=== PATIENT | male | born 1950 | race Caucasian/White ===

== ENCOUNTER 2021-11-30 08:49 | Outpatient (REF) | payer MEDICARE, OTHER, SELFPAY ==
--- NOTE | 2021-12-03 12:20 | MHC.AU.ANO ---
Adult Audiological Evaluation Date of Visit: 11/30/21 Material Reprocessing Associate Used: Not Applicable Reason for Appointment: Referred for an audiologic evaluation due to gradually decreasing hearing ability and tinnitus. Clint reports he is asking for people to repeat what was said more often, particularly when background noise is present. Does patient feel they have a hearing loss?: Yes If Yes, Which Ear?: Both Ears Has hearing been tested previously?: No Hearing Handicap Inventory: HHIE SCORE: 18 Based on HHIE score, patient has: Mild to moderate perceived hearing handicap Ear History: Family History of Hearing Loss?: Yes: Father, 2 siblings, and paternal aunt Bothersome Tinnitus/Ringing/Noises in Ears: Both Ears Ear used on the phone: Left Ear History of occupational noise exposure?: Yes: Used hearing protection as he thought it was needed History: History: Yes Branch: [place] [employer] Years in : Less than 4 years Medical History: Medical History: High Blood Pressure Medication List: Lisinopril and Multivitamin Otoscopy: Right Ear: Small amount of cerumen around the canal wall. Able to visualize TM Left Ear: Small amount of cerumen around the canal wall. Able to visualize TM Tympanometry: Tympanometry performed due to: To assess integrity of the middle ear system Right Ear: Hypercompliant Middle Ear System (Type Ad) Left Ear: Hypercompliant Middle Ear System (Type Ad) Otoacoustic Emissions Frequency Range Used: 1.6-8 kHz Right Ear Results: Present 1600 Hz. Reduced 2000 Hz. Absent 1160-2254 Hz Analysis: Reduced/Absent emissions suggest cochlear dysfunction Results are consistent with degree and configuration of hearing loss Left Ear Results: Reduced 1600 Hz. Absent 5133-5090 Hz Analysis: Reduced/Absent emissions suggest cochlear dysfunction Results are consistent with degree and configuration of hearing loss Hearing Evaluation: Transducer(s) Used: Insert Earphones Bone Conduction Method: Conventional Audiometry Stimuli Used: Pure Tones Right Ear: Description of Hearing: Normal hearing thresholds at 250-1000 Hz, dropping to a severe high frequency sensorineural hearing loss. Left Ear: Description of Hearing: Normal hearing levels 250-750 Hz, dropping to a severe high frequency sensorineural hearing loss. Speech Recognition Threshold (SRT): Method Used: Monitored Live Voice Stimuli Used: Spondee Words Right Ear: 20 dB HL Left Ear: 25 dB HL Word Discrimination: Method: Recorded Lists Word Lists Used: NU-6 Right Ear: 92% at 65 dB HL Left Ear: 56% at 70 dB HL 72% at 80 dB HL Most Comfortable Level (MCL): Right Ear: 65 dB HL Left Ear: 70 dB HL QuickSIN: Binaural Quick SIN Test: 8 dB SNR Loss. This score suggests Clint experiences a moderate degree of difficulty understanding speech with increasing levels of background noise in this controlled test environment. Real world listening situations are likely to make speech understanding even more difficult. Interpretation of Results: With this significant high frequency hearing loss, individuals usually report they can hear people speaking, but are not always able to understand what was said. Clint is not able to hear many consonant sounds of speech which help differentiate similar sounding words. This understanding ability decreases significantly if background noise is present or the speaker is at a distance or not facing Clint. Discussed and provided a handout regarding Communication Strategies Clint and his family can use to improve speech understanding as much as possible. Recommendations: - Referral to Ear, Nose, and Throat is recommended due to the asymmetric hearing loss. - Trial with amplification is recommended. - Medical clearance from a physician is required before fitting. - Audiological re-evaluation in one year. Will send a reminder card. - If Clint would like to pursue hearing aids from this office after receiving medical clearance from the ENT, he may schedule a Hearing Aid Evaluation within 6 months from this hearing test. Diagnosis: Primary Diagnosis: H90.3 Bilateral Sensorineural Hearing Loss Secondary Diagnosis: H93.13 Tinnitus, Bilateral Services Performed: Comprehensive Audiological Evaluation (CPT 18337) Diagnostic Otoacoustic Emissions (CPT 90583, 26+TC) Tympanometry (CPT 17281) Signature: Provider: Lydia Bains, [facility]
== END 2021-11-30 08:50 | disposition home or self-care (01) ==
LOC: HO.SH 08:49
PROVIDERS: Visit Provider Internal Medicine
DX: Z01.118 Encounter for examination of ears and hearing with other abnormal findings (principal); H90.3 Sensorineural hearing loss, bilateral; H93.13 Tinnitus, bilateral
CPT/HCPCS: 92557; 92567; 92588

== ENCOUNTER 2022-03-29 12:39 | Outpatient (REF) | payer SELFPAY ==
--- NOTE | 2022-03-29 14:00 | MHC.AU.HAS ---
Hearing Aid Evaluation Date of Visit: 03/29/22 Historical Information: Description of Hearing: Normal hearing thresholds 250 and 500 Hz dropping to an asymmetric severe high frequency sensorineural hearing loss, left ear poorer than right Current personal amplification information, if applicable: NONE Summary: Saw ENT, Dr. Sebastian and had MRI with no retrocochlear pathology seen. ENT did not give medical clearance to patient at the visit. Will request medical clearance. Discussed appropriate styles and levels of technology. Patient wants to order the following hearing aids to facilitate communication Hearing Aid Prescription: Based on the individual?s shared listening needs, communication environments, dexterity, desire for connectivity, and personal preferences, the following prescription for amplification has been made: Right ear: Electrical And Radio Mechanic: BareedEE Model: Evolv AI 2400 RY-R Battery Size: Rechargeable Color: Champagne Forestry Technical Officer: #3 60 gain Type of Dome: Open Left ear: Electrical And Radio Mechanic: BareedEE Model: Evolv AI 2400 RY-R Battery Size: Rechargeable Color: Champagne Forestry Technical Officer: #3 60 gain Type of Dome: Open Plan of Care: Patient wishes to purchase hearing aids as prescribed Action Taken/Action Needed: Medical Clearance to be requested from PCP/ENT Hearing Instrument Fitting to be scheduled when materials arrive Primary Diagnosis: H90.3 Bilateral Sensorineural Hearing Loss Secondary Diagnosis: H93.13 Tinnitus, Bilateral Signature:Provider: Atiya Bains, CCC-A
--- NOTE | 2022-04-04 09:56 | MHC.AU.MED ---
Medical Clearance for Hearing Instrumentation Date: 04/04/22 Patient Name: Clint Padilla Date of : 1950 Primary Care Provider: Veronica Mccann MD Referring Provider: Paul Sebastian MD We have seen your patient on 04/04/22 and have determined that they are a candidate for amplification (See accompanying report). Specifically, they would benefit from: Hearing aid use in both ears There is a statute that addresses Medical Evaluation Requirements prior to fitting a patient with a hearing aid. According to [place] statute 265 CMR:6.03(1), (a) General. Except as provided in 265 CMR 6.03(1)(b), a home health aide shall not sell a hearing aid unless the prospective user has presented to the home health aide a written statement signed by a licensed physician that states that the patient's hearing loss has been medically evaluated and the patient may be considered a candidate for a hearing aid. The medical evaluation must have taken place within the preceding six months. Please note: Due to the [place] Statute referenced above, we cannot accept a signature other than that of a licensed physician. GOLD STAMPER and PA signatures cannot be accepted. I am in agreement with the above recommendation. There is no medical contraindication for hearing instrumentation. Physician Signature Date Physician Name (Printed)
== END 2022-03-29 12:40 | disposition home or self-care (01) ==
LOC: HO.HAP 12:39
PROVIDERS: Visit Provider Otolaryngology
DX: Z46.1 Encounter for fitting and adjustment of hearing aid (principal); H90.3 Sensorineural hearing loss, bilateral
CPT/HCPCS: 92591

== ENCOUNTER 2022-04-11 13:30 | Outpatient (REF) | payer SELFPAY | END 2022-04-11 13:31 | disposition home or self-care (01) | LOC: HO.HAP 13:30 | PROVIDERS: Visit Provider Otolaryngology | DX: Z46.1 Encounter for fitting and adjustment of hearing aid (principal); H90.3 Sensorineural hearing loss, bilateral; H93.13 Tinnitus, bilateral | CPT/HCPCS: 92591; V5261; V5299 ==

== ENCOUNTER 2022-04-25 13:27 | Outpatient (REF) | payer SELFPAY ==
--- NOTE | 2022-04-25 15:10 | MHC.AU.HFU ---
Hearing Instrument Follow-Up- Binaural Date of Visit: 04/25/22 Right Ear: Medical Numerical Control Operator: Jsoe Model: Evolv AI 2400 RY-R Serial Number: [id number] Repair Warranty: 07/02/2025 Loss and Damage Warranty: 07/02/2025 Battery Size: Rechargeable Color: Champagne Dubbing Machine Operator: #3 60 gain Type of Dome: Open Medium Type of Wax Guard: Hear Clear Dispensed By: [facility] Date of Fittin04/11/2022 Left Ear: Medical Numerical Control Operator: Jose Model: Evolv AI 2400 RY-R Serial Number: [id number] Repair Warranty: 07/02/2025 Loss and Damage Warranty: 07/02/2025 Battery Size: Rechargeable Color: Champagne Dubbing Machine Operator: #3 60 gain Type of Dome: Open Medium Type of Wax Guard: HearClear Dispensed By: [facility] Date of Fittin04/11/2022 Follow-Up Summary: 2 Week Follow-up - Over past week, patient reports improved feelings about the aids. First week he was having difficulty with tolerating the high frequency sounds but is now getting used to them. Also had difficulty with Thrive andi, but after clearing storage in the phone, is not experiencing any more problems at this time. No adjustments made today and patient wants to keep the aids. Recommendations: Hearing instrument follow-up or maintenance as needed. Please contact our clinic with any questions or concerns. Diagnosis Code(s): Primary Diagnosis: H90.3 Bilateral Sensorineural Hearing Loss Secondary Diagnosis: H93.13 Tinnitus, Bilateral Signature:Provider: Lydia Bains, [facility]
== END 2022-04-25 13:28 | disposition home or self-care (01) ==
LOC: HO.HAP 13:27
PROVIDERS: Visit Provider Internal Medicine
DX: Z13.89 Encounter for screening for other disorder (principal)

== ENCOUNTER 2023-02-25 07:56 | Outpatient (REF) | payer MEDICARE, OTHER, SELFPAY | END 2023-02-25 07:57 | disposition home or self-care (01) | LOC: HO.SH 07:56 | PROVIDERS: Visit Provider Internal Medicine | DX: Z01.118 Encounter for examination of ears and hearing with other abnormal findings (principal); H90.3 Sensorineural hearing loss, bilateral | CPT/HCPCS: 92557 ==

== ENCOUNTER 2023-04-03 10:41 | Outpatient (REF) | payer SELFPAY | END 2023-04-03 10:42 | disposition home or self-care (01) | LOC: HO.HAP 10:41 | PROVIDERS: Visit Provider Internal Medicine | DX: Z13.89 Encounter for screening for other disorder (principal) ==

== ENCOUNTER 2024-03-26 10:24 | Outpatient (REF) | payer SELFPAY ==
--- NOTE | 2024-03-29 08:49 | MHC.AU.HA3 ---
Hearing Instrument Follow-Up- Binaural Date of Visit: 03/26/24 Right Ear: Isac, Model, Color, Serial Number: Jose Almanza AI 2400 MONIQUE Schmidt #[id number] Financial Advisor Trainee Repair Warranty: 07/02/2025 Financial Advisor Trainee Loss and Damage Warranty: 07/02/2025 [facility] Service Plan: 07/02/2025 Battery Size: Rechargeable Live Games Dealer/Slim Tube: #3 60 gain Earmold/Dome/CShell/SlimTip: Type of Wax Guard: Hear Clear Dispensed By: [facility] Date of Fittin04/11/2022 Left Ear: Isac, Model, Color, Serial Number: Jose Almanza AI 2400 MONIQUE Schmidt #[id number] Financial Advisor Trainee Repair Warranty: 07/02/2025 Financial Advisor Trainee Loss and Damage Warranty: 07/02/2025 [facility] Service Plan: 07/02/2025 Battery Size: Rechargeable Live Games Dealer/Slim Tube: #3 60 gain Earmold/Dome/CShell/SlimTip: Type of Wax Guard: HearClear Dispensed By: [facility] Date of Fittin04/11/2022 Follow-Up Summary: Left aid dropped off with broken credit collections rep. None in stock. Ordered from Jose. Aid is in repair drawer. Call pt to leaf size picker when ready. Recommendations: Recommendations: Patient will be contacted when materials have arrived. Diagnosis Code(s): Primary Diagnosis: H90.3 Bilateral Sensorineural Hearing Loss Secondary Diagnosis: H93.13 Tinnitus, Bilateral Signature: Provider: Farzaneh Sawant, [facility]
== END 2024-03-26 10:25 | disposition home or self-care (01) ==
LOC: HO.HAP 10:24
DX: Z13.89 Encounter for screening for other disorder (principal)

== ENCOUNTER 2024-04-13 14:34 | Outpatient (REF) | payer SELFPAY | END 2024-04-13 14:35 | disposition home or self-care (01) | LOC: HO.HAP 14:34 | DX: Z13.89 Encounter for screening for other disorder (principal) ==

== ENCOUNTER 2025-03-17 14:46 | Outpatient (REF) | payer SELFPAY ==
--- OUTSIDE RECORDS SUMMARY | 2025-03-17 15:26 | XMS_ITS | Clinical Summary ---
Author Organization [facility] Address [address] [place] [address] Care Team Providers Care Greens Tier Name Role Phone Veronica Mccann MD Primary Care Provider [phone] Allergies No known active allergies Medications Medication Sig Dispensed Refills Start Date End Date Status lisinopril (PRINIVIL,ZESTRIL) tablet 20 mg Take 20 mg by mouth daily. 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 Sex and Gender Information Value Date Recorded Sex Assigned at Not on file Gender Identity Not on file Sexual Orientation Not on file Job Start Date Occupation Industry Not on file Not on file Not on file Last Filed Vital Signs Vital Sign Reading Time Taken Comments Blood Pressure 171/85 12/18/2021 9:32 AM EST Pulse 75 12/18/2021 9:32 AM EST Temperature 36.8 ??C (98.2 ??F) 12/18/2021 9:32 AM ES T Respiratory Rate - - Oxygen Saturation 100% 12/18/2021 9:32 AM EST Inhaled Oxygen Concentration - - Weight 78.9 kg (174 lb) 12/18/2021 9:32 AM EST Height 175.3 cm (5' 9 ) 12/18/2021 9:32 AM EST Body Mass Index 25.7 12/18/2021 9:32 AM EST Plan of Treatment Health Maintenance Due Date Last Done Comments Hepatitis C Screening 1950 COVID-19 Vaccine (#1) 01/07/1951 Depression Screening 1961 Preventative Health Evaluation 1967 Colon Cancer Screening (Colonoscopy) 1994 Shingrix-Zoster Vaccine (1 of 2) 1999 Fall Risk Assessment 2014 DTap / Tdap / Td (2 - Td or Tdap) 08/16/2023 08/16/2013 RSV Adult > 60+ Yrs or (1 - 1-dose 75+ series) 2024 Influenza Vaccine (#1) 2024 , 08/21/2020, 08/19/2019, Additional history exists Pneumococcal Vaccine Completed 01/05/2015, 11/04/20 14 Hepatitis B Vaccines Aged Out No long er eligible based on patient's age to complete this topic RSV Ped < 20 months Aged Out No longe r eligible based on patient's age to complete this topic Care Teams Greens Tier Relationship Specialty Start Date End Date Veronica Mccann MD PCP - General Internal Medicine 11/19/21
== END 2025-03-17 14:47 | disposition home or self-care (01) ==
LOC: HO.HAP 14:46
PROVIDERS: PCP Internal Medicine; Visit Provider Internal Medicine
DX: Z13.89 Encounter for screening for other disorder (principal)

== ENCOUNTER 2025-03-30 10:35 | Outpatient (REF) | payer SELFPAY ==
--- OUTSIDE RECORDS SUMMARY | 2025-03-30 12:02 | XMS_ITS | Clinical Summary ---
Author Organization [facility] Address [address] [place] [address] Care Team Providers Care Pharmacy Operations Specialist Name Role Phone Veronica Mccann MD Primary Care Provider [phone] Allergies No known active allergies Medications Medication [...] age to complete this topic Care Teams Pharmacy Operations Specialist Relationship Specialty Start Date End Date Veronica Mccann MD PCP - General Internal Medicine 11/19/21
--- OUTSIDE RECORDS SUMMARY | 2025-03-30 12:02 | XMS_ITS | Encounter Summary ---
Author Organization [facility] Address [address] [place] [address] Care Team Providers Care Central Supply Technician Name Role Phone Veronica Mccann MD Primary Care Provider [phone] Reason for Visit * Reason Comments Annual Exam Hypertension Encounter Details Date Type Department Care Team (Late st Contact Info) Description 03/28/2025 3:00 PM EDT Office Visit Adult Medicine [facility] [address] [place] [phone] Veronica Mccann MD [address] [place] [address] Routine general medical examination at a health care facility (Primary Dx); Primary hypertension; Screening for prostate cancer Social History Tobacco Use Types Packs/Day Years Used Date Smoking Tobacco: Never Smokeless Tobacco: Never Tobacco Cessation:Counseling Given: Not Answered Alcohol Use Standard Drinks/Week Comments Yes 0 (1 standard drink = 0.6 oz pur e alcohol) Housing Instability Answer Date Recorde d Are you worried that in the next 2 months you may not have stable housing? No 09/22/2024 Food Access & Nutrition Answer Date Rec orded Do you have access to a vari ety of food including fruits and vegetables? Yes 09/22/2024 Access to Healthcare Answer Date Record ed Within the last 3 months, ho w many times did you visit the emergency department for your medical care? 0 09/22/2024 Health Literacy Answer Date Recorded How often do you need to hav e someone help you when you read instructions, pamphlets, or other written material from your doctor or pharmacy? Never 09/22/2024 Caregiver: How often do you need to have someone help you when you read instructions, pamphlets, or other written material from your doctor or pharmacy? Not on file 09/22/2024 Financial Risk Answer Date Recorded How hard is it for you to pa y for the very basics like food, housing, medical care, and air conditioning / heating? Not very hard 09/22/2024 Transportation Answer Date Recorded Has the lack of transportati on kept you from meetings, work, or from getting things needed for daily living? No Has the lack of transportati on kept you from medical appointments or from getting medications? No 09/22/2024 Social Isolation Answer Date Recorded How often do you feel lonely or isolated from th ose around you? Rarely 09/22/2024 Food Risk Answer Date Recorded Within the past 12 months we worried whether our food would run out before we got money to buy more. Never true 09/22/2024 Within the past 12 months th e food we bought just didn't last and we didn't have money to get more. Never true 09/22/2024 Dependent Care Answer Date Recorded Do you need help finding or paying for care for your loved ones. For example, child nutrition manager or elderly care for an older adult? No 09/22/2024 Education Answer Date Recorded Do you think completing more education or training, like finishing a GED, going to college, or learning a trade, would be helpful for you? N/A 09/22/2024 Employment and Income Answer Date Recor ded During the last four weeks, have you been actively looking for work? No 09/22/2024 Living Situation Answer Date Recorded What is your living situation? 1 11/22/2023 Sex and Gender Information Value Date Recorded Sex Assigned at Not on file Legal Sex Male 3:55 AM EST Gender Identity Not on file Sexual Orientation Not on file documented as of this encounter Last Filed Vital Signs Vital Sign Reading Time Taken Comments Blood Pressure 138/82 03/28/2025 3:16 PM EDT Pulse 64 03/28/2025 2:47 PM EDT Temperature 36.1 ??C (96.9 ??F) 03/28/2025 2:47 PM ED T Respiratory Rate 14 03/28/2025 2:47 PM EDT Oxygen Saturation 98% 03/28/2025 2:47 PM EDT Inhaled Oxygen Concentration - - Weight 81.8 kg (180 lb 4.8 oz) 03/28/2025 2:47 P M EDT Height 175.3 cm (5' 9 ) 03/28/2025 2:47 PM EDT Body Mass Index 26.63 03/28/2025 2:47 PM EDT documented in this encounter Progress Notes * Veronica Mccann MD - 03/28/2025 3:00 PM EDT CHIEF COMPLAINT: Chief Complaint Patient presents with Annual Exam Hypertension IDENTIFIER: Clint Padilla is a 74 y.o. old male who comes for evaluation of general medical health. HPI: He comes for his yearly exam. He did have a total hip replacement last year, has been back on the bicycle and has biked over 1200 miles this season. He brings with him a month of blood pressure readings showing his blood pressure is a 1 20-1 30s at home over 70s. He has been taking lisinopril for blood pressure control, is no longer on Celebrex, aspirin or Protonix. ROS: General: No malaise, significant weight loss or fever HEENT: No changes in hearing or vision, nose bleeds Neck: No pain or significant neck swelling Respiratory: No cough, wheezing or shortness of breath Cardiovascular: No chest pain, palpitations, no orthopnea GI: No nausea or vomiting, diarrhea, blood in stools or black stools : No dysuria, frequency or incontinence Musculoskeletal: No joint pain or swelling, no muscle pain or stiffness Skin: No lesions, rash or itching Psych: No sleep disturbance, mood disorder Heme/lymph: No prolonged bleeding, bruising, easily Endocrine: No cold or heat intolerance, polyuria, polydipsia Neuro no persistent headache, syncope, seizures, weakness or numbness The remainder of the review of systems is noncontributory. 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 COLONOSCOPY 08/2023 : normal; no further CN recommended due to age ROTATOR CUFF REPAIR Right TOTAL HIP ARTHROPLASTY Right IMMUNIZATIONS: Immunization History Administered Date(s) Administered COVID-19 (Moderna/Spikevax) 12yo and older 08/15/2023, 03/05/2024, 07/30/2024 Influenza Quadravalent, 0.5ml (Fluzone High-dose) 65yo and older 07/22/2022, 08/15/2023 Influenza trivalent, 0.5mL (Fluzone High-dose) 65yo and older 08/17/2016, 09/13/2018, 08/19/2019, 08/21/2020, 08/28/2021, 08/15/2023, 07/30/2024 Influenza trivalent, with preservative (Fluzone; Afluria) 6mo and older 10/31/2011, 11/18/2012, 08/16/2013, 10/12/2014 Influenza, Unspecified 07/22/2022 Moderna (age 6mo & older) Bivalent, COVID-19, 0.5 mL or 0.25 mL dosage 07/22/2022, 03/21/2023 Moderna Covid-19 Bivalent, Original + Ba.1 (Non-US Tradename Spikevax Bivalent) 07/22/2022, 03/21/2023 Moderna SARS-CoV-2 COVID-19, mRNA, LNP-S, preservative free 01/12/2021, 02/09/2021, 09/12/2021, 03/20/2022 Pneumococcal conjugate 13 valent (Prevnar 13, PCV13) 2mo and older 11/04/2014 Pneumococcal polysaccharide 23 valent (Pneumovax 23) 2yo and older 01/05/2015 RSV, bivalent, protein subunit RSVpreF, 0.5mL, Preservative Free (Arexvy) 60yo and older 03/05/2024 Td Tetanus diptheria (Tdvax) 7yo and older 04/04/2004, 02/07/2008, 09/17/2023 Tdap Tetanus diptheria acellular pertussis (Boostrix; Adacel) 7yo and older 08/16/2013 Zoster Live 01/26/2014 Zoster recombinant (Shingrix) 19yo and older 01/15/2023, 03/21/2023 SOCIAL HISTORY: Social History Tobacco Use Smoking status: Never Smokeless tobacco: Never Substance Use Topics Alcohol use: Yes FAMILY HISTORY: Family History Problem Relation Name Age of Onset Hypertension Mother colon cancer Prostate cancer Father diabetes Diabetes Maternal Grandfather Prostate cancer Paternal Grandfather Hemochromatosis Son Other (Other: benign colon tumor) Son Colon cancer Aunt maternal Breast cancer Aunt maternal Stomach cancer Other first cousin, maternal ACTIVE MEDICATIONS: Outpatient Medications Marked as Taking for the 03/28/25 encounter (Office Visit) with Veronica Mccann MD Medication Sig Dispense Refill lisinopriL (PRINIVIL,ZESTRIL) 20 mg tablet Take 1 tablet (20 mg total) by mouth at bedtime. 90 tablet 0 MULTIVITAMIN ORAL Take by mouth. MEDICATION DISCONTINUED/REORDERED: Medications Discontinued During This Encounter Medication Reason pantoprazole (PROTONIX) 40 mg EC tablet celecoxib (CeleBREX) 200 mg capsule aspirin 325 mg tablet ALLERGIES: Patient has no known allergies. PHYSICAL EXAM: Blood pressure 138/82, pulse 64, temperature 36.1 ??C (96.9 ??F), temperature source Temporal, resp. rate 14, height 1.753 m (69 ), weight 81.8 kg (180 lb 4.8 oz), SpO2 98%. Body mass index is 26.63 kg/m??.BMI is 18.5 to 24.9 (within the normal range) and will be followed General: patient is in no acute distress. Eye exam: MAYRA, EOMI. ENT exam: pharynx is clear no tonsillar enlargement or exudates. Tympanic membranes are clear on the left without air fluid levels or erythema. Right auditory canal is occluded with cerumen neck supple without adenopathy, no thyromegaly. Lungs clear with auscultation. Heart: regular S1S2 without murmur, rub or gallop. Abdominal exam: soft, nontender, no masses or organomegaly. Bowel sounds normal active. Genital and rectal exam done with magneto specialist [place]. Genitalia are normal uncircumcised male, testicles without tenderness or masses. Rectal: stool brown and heme negative, no masses or tenderness. Prostate nontender without mass or nodules. Extremities without cyanosis, clubbing or edema. Neurological: exam is nonfocal. Strength, reflexes, sensation in the upper and lower extremities intact. Skin exam: without lesions. LABS/IMAGING: Lab Results Component Value Date CHOL 189 05/10/2022 LDL 101 (A) 05/10/2022 HDL 79 05/10/2022 TRIG 45 05/10/2022 CBC, chemistries, PSA ordered IMPRESSION: 1. Routine general medical examination at a health care facility 2. Primary hypertension 3. Screening for prostate cancer PLAN: He will use Debrox to help flush his right ear, he has been using hearing aids which help with his hearing. His blood pressure based on his home readings have been within range, initial blood pressure here was elevated but did improve as well with repeat testing. He will continue with his regular physical exercise, continue with regular eye exam, blood work to be done. Given family history of prostate cancer PSA will be checked. Continue with monthly self genital exam. He is up-to-date with colon cancer screening. He will return in 6 months, sooner if needed. He is up-to-date with vaccinations. Did you have a dental visit in the last 12 months? Yes Did you have a dental problem in the last 6 months? No I have reviewed the following sections of the chart: medical history, social history, family history Genetic screening was performed: NO INDICATION: Hereditary Cancer Syndrome Risk Assessment completed and evaluated. No indication found for genetic testing at this time. documented in this encounter Plan of Treatment Upcoming Encounters Date Type Department Care Team (Late st Contact Info) Description 09/29/2025 8:00 AM EST Office Visit Adult Medicine [address] [phone] [place] [address] [place] [address] Scheduled Orders Name Type Priority Associated Diagnoses Orde r Schedule Prostate specific antigen screen Lab Routine Screening for prostate cancer 1 Occurrences starting 03/28/2025 until 03/28/2026 CBC and differential Lab Routine Primary hypertension 1 Occurrences starting 03/28/2025 until 03/28/2026 Basic metabolic panel Lab Routine Primary hypertension 1 Occurrences starting 03/28/2025 until 03/28/2026 documented as of this encounter Visit Diagnoses Diagnosis Routine general medical examination at a health care facility- Primary Primary hypertension Unspecified essential hypertension Screening for prostate cancer Special screening for malignant neoplasm of prostate documented in this encounter Discontinued Medications Medication Sig Discontinue Reason Start Date End Da te pantoprazole (PROTONIX) 40 mg EC tablet Take 1 tablet (40 mg total) by mouth 1 (one) time each day. for 30 days 08/19/2024 03/28/2025 celecoxib (CeleBREX) 200 mg capsule Take 1 capsule (200 mg total) by mouth 1 (one) time each day. 08/19/2024 03/28/2025 aspirin 325 mg tablet Take 1 tablet (325 mg total) by mouth 2 (two) times a day. 08/27/2024 03/28/2025 documented as of this encounter Additional Health Concerns Assessment Noted Time PHQ-9 Depression Total Score: 1 03/21/20 25 8:28 PM EDT documented as of this encounter Care Teams Central Supply Technician Relationship Specialty Start Date End Date Veronica Mccann MD [address] [place] [address] PCP - General 05/10/1993 documented as of this encounter
--- OUTSIDE RECORDS SUMMARY | 2025-03-30 12:02 | XMS_ITS | Data Portability ---
Author Organization [place] - [facility], [facility] [place] Address [address] [place] [address] Care Team Providers Care Graphic Design Assistant Name Role Phone IMER ROLDAN Referring Provider IMER ROLDAN Primary Care Provider Assessment Encounter Date Assessment Date Assessment LastModified by Organization Details LastModified Time 09/10/2024 09/10/2024 Assessment: Patient demonstrates good tolerance to all ther-ex without increased sxs or pain. Mild decreased balance noted. Pt ambulates without AD and heel-toe pattern. Pt able to perform ascending and descending stairs reciprocally. Plan: Continue with PT 2x/week to improve LE strength, balance and proprioception. Gait training with proper body mechanics. Recheck with PAC on 09/10/24. [email or web address] Not available 09/10/2024 11:57:41 09/14/2024 09/14/2024 Assessment: Pt demonstrates functional ROM and strength. Good LE strength, able to complete full flight of stairs reciprocally, sit to stand w/o use of UE. Plan: Continue with PT 2x/week to improve LE strength, balance and proprioception. Gait training with proper body mechanics. Recheck with PAC on 09/10/24. Not available 09/16/2024 08:14:37 09/16/2024 09/16/2024 Assessment: Pt demonstrates functional ROM and strength. Good LE strength, able to complete full flight of stairs reciprocally, sit to stand w/o use of UE. Plan: Continue with PT 2x/week to improve LE strength, balance and proprioception. Gait training with proper body mechanics. Recheck with PAC on 09/10/24. Not available 09/19/2024 10:54:37 09/20/2024 09/20/2024 Assessment: Session focused on reviewing HEP. Good LE strength and balance with all ther-ex. All questions and concerns were addressed and answered. Plan: D/c to independent HEP. Recheck with PAC on 09/10/24. [email or web address] Not available 09/20/2024 12:57:29 10/12/2024 10/12/2024 Imaging: Imaging ordered, independently reviewed and interpreted by Greg Foss MD reveals the following findings: XR Hip Right hip: Two views of the hip were obtained including AP pelvis and groin lateral views. Status post hip surgery: Status post NAHID with no evidence of complication, well fixed, well aligned, and located. There is good taoist of leg length and offset without loosening or migration. Impression: Status post right anterior total hip arthroplasty, 6 weeks out Plan: The patient is doing well, continue activities as tolerated. Follow up with repeat radiographs in 1 year, or sooner if problems arise. [email or web address] Not available 10/12/2024 11:24:06 Plan of Treatment Reminders Order Date Submit Date Provider Last Modified By Organization Details Last Modified Time Details Appointments None recorded. Lab None recorded. Referral None recorded. Procedures None recorded. Surgeries None recorded. Imaging XR, hip + pelvis, unilatera l, 2 or 3 view - 2v RTHR AB protocol 2023 024 [facility], [address] [facility], [facility] [address], [place], [address], 4 09:40:15 Medication Orders None recorded. Patient TargetsNo targets recorded. Patient InstructionsNo instructions recorded. Reason for Referral None Reported. Results Created Date Observation Date Name Description Value Unit Range Abnormal Flag Note LastModifiedBy Organization Detail LastModifiedTime 08/24/20 24 07/27/2024 XR, hip + pelvi s, unila teral , 2 or 3 view [email or web address]:/ [email or web address] ?Encry pted=s hAaTro YD8dLq bEUv6g %2BXZw aYqtaq 0bqfl% 2Fg9IQ a4ajBk vP9nXo QUaueC m3YtLR FvZlgJ JJ8mAn HZtai3 1q5258 AC0Kqa niFUqW iKiQtr MwF INTERFACE [facility] [address] [facility] [address] [address], [place], [address], 08/24/2024 08:11:30 08/24/20 24 07/27/2024 XR, hip + pelvi s, unila teral , 2 or 3 view [email or web address]:/ [email or web address] ?Encry pted=s hAaTro YD8dLq bEUv6g %2BXZw aYqtaq 0bqfl% 2Fg9IQ a4ajBk vP9nXo QUaueC m3YtLR FvZlgJ JJ8mAn HZtai3 1z7199 AC0Kqa niFUqW iKiQtr MwF INTERFACE [facility] [address], [address], 08/24/2024 08:11:32 09/10/20 24 09/10/2024 XR, hip + pelvi s, unila teral , 2 or 3 view [email or web address]:/ [email or web address] ?Encry pted=s hAaTro YD8dLq bEUv6g %2BXZw aYqtaq 0bqfl% 2Fg9IQ a4ajBk vP9nXo QUaueC m3YtLR FvZlgJ JJ8mAn HZtai3 7a7990 AC0Kqa HmDUKu nKiQtr MwF INTERFACE [facility] [address], [address], 09/10/2024 13:42:08 09/10/20 24 09/10/2024 XR, hip + pelvi s, unila teral , 2 or 3 view http:/ [email or web address] ?Encry pted=s hAaTro YD8dLq bEUv6g %2BXZw aYqtaq 0bqfl% 2Fg9IQ a4ajBk vP9nXo QUaueC m3YtLR FvZlgJ JJ8mAn HZtai3 2j2937 AC0Kqa HmDUKu nKiQtr MwF INTERFACE [facility] [address], [place], [address], 09/10/2024 13:42:10 10/12/20 24 10/12/2024 XR, hip + pelvi s, unila teral , 2 or 3 view http:/ [email or web address] ?Encry pted=s hAaTro YD8dLq bEUv6g %2BXZw aYqtaq 0bqfl% 2Fg9IQ a4ajBk vP9nXo QUaueC m3YtLR FvZlgJ JJ8mAn HZtai3 1s6623 AC0Kqa XuCUqq uKiQtr MwF INTERFACE [facility] [address], [place], [address], 10/12/2024 10:09:17 10/12/20 24 10/12/2024 XR, hip + pelvi s, unila teral , 2 or 3 view http:/ [email or web address] ?Encry pted=s hAaTro YD8dLq bEUv6g %2BXZw aYqtaq 0bqfl% 2Fg9IQ a4ajBk vP9nXo QUaueC m3YtLR FvZlgJ JJ8mAn HZtai3 0z0239 AC0Kqa XuCUqq uKiQtr MwF INTERFACE [facility] [address], [place], [address], 10/12/2024 10:09:19 Result Notes None recorded. 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 Procedures Surgical History Date Name Laterality Status Provider Name and Address Organization Details Recorded Time 4 78476 Therapeutic Exercise (1:1) completed Bjorn Sainz DPT [address], [place], [address], [facility] 09/20/2024 13:00:29 4 56696 Therapeutic Exercise (1:1) completed Niranjan Lr PTA [address], [place], [address], [facility] 09/16/2024 12:07:53 4 72210 Therapeutic Exercise (1:1) completed Niranjan Lr PTA [address], [place], [address], [facility] 09/14/2024 09:38:47 4 16325 Therapeutic Exercise (1:1) completed Bjorn Sainz DPT [address], [place], [address], [facility] 09/10/2024 11:58:17 4 58675 Therapeutic Exercise (1:1) completed Bjorn Sainz DPT [address], [place], [address], [facility] 09/06/2024 13:30:01 4 40634: Low complexity PT Eval completed Bjorn Sainz DPT [address], [place], [address], [facility] 09/06/2024 13:30:02 4 G8417 BMI Above Upper Parameters, F/U Documented completed Bjorn Sainz DPT [address], [place], [address], [facility] 09/06/2024 13:33:49 4 G8427 Current Medication Documented completed Bjorn Sainz DPT [address], [place], [address], [facility] 09/06/2024 13:33:46 4 03504 Therapeutic Exercise (1:1) completed Bjorn Sainz DPT [address], [place], [address], [facility] 08/13/2024 11:59:10 4 51903 Therapeutic Exercise (1:1) completed Bjorn Sainz DPT [address], [place], [address], [facility] 08/04/2024 16:58:17 4 10024: Low complexity PT Eval completed Bjorn Sainz DPT [address], [place], [address], [facility] 08/04/2024 16:58:20 4 G8417 BMI Above Upper Parameters, F/U Documented completed Bjorn Sainz DPT [address], [place], [address], [facility] 08/04/2024 16:58:29 4 G8427 Current Medication Documented completed Bjorn Sainz DPT [address], [place], [address], [facility] 08/04/2024 16:58:25 2 Shoulder Surgery completed Makayla Bullard [facility] 07/27/2024 09:30:19 Imaging Results Imaging Date Name Status LastModified by Organiz ation Details LastModified Time 07/27/2024 XR, hip + pelvis, unilateral , 2 or 3 view completed INTERFACE [facility] [address], [place], [address], 08/24/2024 08:11:30 07/27/2024 XR, hip + pelvis, unilateral , 2 or 3 view completed INTERFACE [facility] [address], [place], [address], 08/24/2024 08:11:32 09/10/2024 XR, hip + pelvis, unilateral , 2 or 3 view completed INTERFACE [facility] [address], [place], [address], 09/10/2024 13:42:08 09/10/2024 XR, hip + pelvis, unilateral , 2 or 3 view completed INTERFACE [facility] [address], [place], [address], 09/10/2024 13:42:10 10/12/2024 XR, hip + pelvis, unilateral , 2 or 3 view completed INTERFACE [facility] [address], [place], [address], 10/12/2024 10:09:17 10/12/2024 XR, hip + pelvis, unilateral , 2 or 3 view completed INTERFACE [facility] [address], [place], [address], 10/12/2024 10:09:19 Procedure Notes None recorded. Medical Equipment None Reported. Allergies No known drug allergies Medications Name Sig Start Date Stop Date Status Note LastModified by Organization Details LastModified Time celecoxib 200 mg capsule TAKE 1 CAPSULE BY MOUTH EVERY DAY 09/10 completed Not Available Not Available Not Available amoxicillin 500 mg capsule 4 pills 1 hour prior to dental active Not Available Not Available No t Available lisinopril 20 mg tablet 1 tablet every day by oral route. active Not Available Not Available No t Available ondansetron HCl 4 mg tablet TAKE 1 TABLET BY MOUTH THREE TIMES A DAY FOR 7 DAYS 09/10 completed Not Available Not Available Not Available tramadol 50 mg tablet TAKE 1-2 TABLETS EVERY 6 HOURS NEEDED FOR MILD PAIN. 09/10 completed Not Available Not Available Not Available aspirin 325 mg tablet,radha yed release TAKE 1 TABLET BY MOUTH TWICE A DAY active Not Available Not Available No t Available pantoprazol e 40 mg tablet,radha yed release TAKE 1 TABLET BY MOUTH EVERY DAY FOR 30 DAYS active Not Available Not Available No t Available docusate sodium 100 mg capsule TAKE 1 CAPSULE BY MOUTH TWICE A DAY FOR 30 DAYS 09/10 completed Not Available Not Available Not Available oxycodone 5 mg tablet TAKE 1 TABLET BY MOUTH EVERY 4 HOURS FOR 7 DAYS 09/10 completed Not Available Not Available Not Available Laxative (bisacodyl) 5 mg tablet,radha yed release TAKE 2 TABLETS BY MOUTH RIGHT BEFORE YOUR FIRST DOSE OF LIQUID PREP. 09/10 completed Not Available Not Available Not Available oxycodone HCl-oxycodo ne-ASA 1 every 4 - 6 hours as needed DO NOT DRIVE WHILE ON THIS MEDICATIO N 04/14 completed Statu s: 'Curr ent'; Not Available Not Available Not Available GaviLyte-G 236 gram-22.74 gram-6.74 gram-5.86 gram oral solution PLEASE SEE ATTACHED FOR DETAILED DIRECTION S 09/10 completed Not Available Not Available Not Available Paxlovid 300 mg (150 mg x 2)-100 mg tablets in a dose pack TAKE 3 TABLETS BY MOUTH TWICE A DAY FOR 5 DAYS. FOLLOW PACKAGE DIRECTION S 09/10 completed Not Available Not Available Not Available Vitals Date Recorded Body height Body mass index (BMI) Body weight Provider Name and Address Organization Details Last Updated DateTime 09/10/2024 175.26 cm 26.4 kg/m2 83851.03 g Jackeline Shoemaker [facility] 09/10/2024 13:29:46 Date Recorded Body height Body mass index (BMI) Body weight Provider Name and Address Organization Details Last Updated DateTime 10/12/2024 175.26 cm 26.4 kg/m2 80755.03 g Makayla Bullard [facility] 10/12/2024 09:56:11 Social History Question Answer Notes LastModified by Organizat ion Details LastModified Time Tobacco Smoking Status Never Smoker Makayla de la cruz [facility] 07/27/2024 09:30:13 What Is Your Relationship Status? Information not available 07/27/2024 Sex: Unknown Functional Status Question Answer Note LastModified by Organizat ion Details LastModified Time How many times per week do you consume alcohol? 5-7 times per week Information not available 07/27/2024 Do you use any illicit or recreational drugs? No Information not available 07/27/2024 Do you or have you ever used any other forms of tobacco or nicotine? No Information not available 07/27/2024 Do you or have you ever used e-cigarettes or vape? Never used electronic cigarettes Information not available 07/27/2024 Mental Status None recorded. Family History Nothing Reported. Medical History Condition Response Allergies/Hayfever N Coronary Artery Disease N Breathing or lung disorders N Anxiety/Depression N Emphysema N Nerve Disorders N Thyroid Problems N COPD N Pacemaker N Kidney/Bladder Problems N Anemia N Vascular Disease N Heart Trouble N Heart Attack (NE) N Gastrointestinal Disease N Cholesterol N Diabetes N Autoimmune disease N Bleeding Disorder N Orthotics N Seizures/Epilepsy N Arthritis Y Blood Clot N AIDS/HIV N Congestive Heart Failure (CHF) N Acid Reflux (GERD) N Cancer N Stroke N Asthma N Circulation Problems N Peripheral Vascular Disease N Sleep Apnea N Hepatitis N Heart Disease N Rheumatoid Arthritis N Pulmonary Embolism N Arrhythmia N Headaches N Fibromyalgia N Hypertension Y Osteoporosis N Past Encounters Encounter ID Performer Location Encounter Start Date Encounter Closed Date Diagnosis/Indication Diagnosis SNOMED-CT Code Diagnosis ICD10 Code Diagnosis Note [id number] JUAN A Ulrich [address] [place] [address] 04/16/2024 14:44:29 05/05/2024 10:34:30 Osteoarthritis of right hip joint 4722449758 46056 M16.11 [id number] MD Parul Bradley 2nd floor [address] [place] [address] 07/27/2024 08:56:39 08/06/2024 15:46:46 Pain of right hip joint 1950240818 01393 M25.551 Osteoarthr itis of right hip joint 2019084750 55430 M16.11 [id number] Hongshin Alistair, DPT [facility] [address] [place] [address] 08/04/2024 14:46:49 08/04/2024 16:50:48 Osteoarthritis of hip 406042748 M16.11 [id number] Bjorn Sainz, DPT [facility] [address] [place] [address] 08/13/2024 09:23:02 08/13/2024 10:17:11 Osteoarthritis of hip 319681596 M16.11 [id number] Bjorn Sainz, DPT [facility] [address] [place] [address] 09/06/2024 12:56:57 09/06/2024 13:46:41 Aftercare 481133264 Z47.1 Z96.823 [id number] Bjorn Sainz DPT [facility] [address] [place] [address] 09/10/2024 09:36:58 09/10/2024 11:51:06 Aftercare [id number] Z47.1 Z96.737 [id number] Elan Underwood PA-C [facility] [address] [place] [address] 09/10/2024 13:20:49 10/01/2024 13:17:21 History of repair of hip joint 708046784 Z96.221 [id number] Niranjan Lr, [employer] ASSIST[employer] [facility] [address] [place] [address] 09/14/2024 11:25:20 09/14/2024 12:09:41 Aftercare [id number] Z47.1 Z96.543 [id number] Niranjan Lr, [employer] ASSIST[employer] [facility] [address] [place] [address] 09/16/2024 11:21:43 09/16/2024 13:11:30 Aftercare 708119383 Z47.1 Z96.677 [id number] Bjorn Sainz, DPT [facility] [address] [place] [address] 09/20/2024 09:16:14 09/20/2024 10:04:42 Aftercare 520873366 Z47.1 Z96.142 [id number] MD Parul Bradley 2nd floor [address] [place] [address] 10/12/2024 09:45:59 10/27/2024 09:40:15 History of total replacement of right hip joint 1359825073 13776 Z96.641 Health Concerns Section Related Observation LastModified by Organization Detai ls LastModified Time None Recorded Concern Status LastModified by Organization Details LastModified Time None Recorded Advance Directives Directive None Recorded Payers Encounter Date Sequence Insurance Name Policy Number Policy Zapien Covered Member ID Zapien Member ID Guarantor Name 09/10/2024 2 [employer] - GIC INDEMNITY PLAN (MEDICARE SUPPLEMENT) [id number] Clint R Rakouskas [id number] Clint Martinez Rakouskas 09/10/2024 1 [place] [employer] Clint R Rakouskas [id number] Clint R Rakouskas 09/14/2024 2 [employer] - [employer] INDEMNITY PLAN (MEDICARE SUPPLEMENT) [id number] Clint R Rakouskas [id number] Clint R Rakouskas 09/14/2024 1 [place] [employer] Clint R Rakouskas [id number] Clint R Rakouskas 09/16/2024 2 [employer] INDEMNITY PLAN (MEDICARE SUPPLEMENT) [id number] Clint R Rakouskas [id number] Clint R Rakouskas 09/16/2024 1 [place] [employer] Clint R Rakouskas [id number] Clint R Rakouskas 09/20/2024 2 [employer] INDEMNITY PLAN (MEDICARE SUPPLEMENT) [id number] 8 Clint R Rakouskas [id number] Clint R Rakouskas 09/20/2024 1 [place] [employer] Clint R Rakouskas [id number] Clint R Rakouskas 10/12/2024 2 [employer] - [employer] INDEMNITY PLAN (MEDICARE SUPPLEMENT) [id number] Clint R Rakouskas [id number] Clint Padilla 10/12/2024 1 [place] [facility] Clint Padilla [id number] Clint Padilla Notes Date Note Type Note Provider Name and Address Organization Details Recorded Time 09/10/2024 text/html I am seeing the patient today under the supervision of {{ Brothers#}} who was available but who did not see the patient. HISTORY OF PRESENT ILLNESS The patient presents today for follow-up, now two weeks status post {{Left Right*}} total hip arthroplasty. Overall progressing nicely, happy with results. No significant complaints of pain.No neurovascular changes. Patient is doing physical therapy. Utilizing Tylenol for pain relief. He is on aspirin for DVT prophylaxis. He is not utilizing anything for ambulatory support. He is continue with icing. PAST MEDICAL/SURGICAL HISTORY Reviewed today, otherwise unchanged per intake sheet REVIEW OF SYSTEMS Systemic: No fever and no chills. Cardiovascular: No chest pain or discomfort. Pulmonary: No dyspnea. PHYSICAL FINDINGS General Appearance: Well developed. n no acute distress. Musculoskeletal System: Hips: Right Hip: Hip was not tender on palpation. No pain was elicited by active motion. No pain was elicited by passive motion. Lower Leg: General/bilateral : Calves of both lower legs were not tender on palpation. Neurological: Oriented to time, place, and person. Gait And Stance: An operative sided antalgic gait was observed without assistive device. Psychiatric: Mood was appropriate to the affect. Skin: Physical examination of the hip reveals the incision to be intact, no erythema or drainage, no evidence of infection. 4/5 strength, normal sensation. Contralateral side shows no warmth, erythema, soft tissue swelling, or effusion. TESTS X-rays ordered, obtained, and reviews today at [facility], two views, reveal maintained alignment of the prosthetic components, no fracture or dislocation,excel lent interface ASSESSMENT Progressing nicely two weeks status post {{Left Right*}} total hip arthroplasty. PLAN Reviewed total hip precautions with the patient, who showed good understanding, and will continue to monitor for any evidence of infection, Follow-up in one month for re-evaluation, sooner if there is any complications. Elan Underwood PA-C [address] [facility] [address], [place], [address], [facility] 09/13/2024 08:49:50 09/10/2024 text/html Patient reports he is very happy with the result. Doing really well with his hip after surgery.Pains 0/10 at rest. Bjorn Sainz DPT [address], [place], [address], [facility] 09/10/2024 11:58:36 09/14/2024 text/html Patient reports getting better. Has no pain at rest, stiffness in the morning when getting out bed. Niranjan Lr [employer] ASSIST[employer] [address], [place], [address], [facility] 09/16/2024 08:15:16 09/16/2024 text/html Patient reports getting better. Has no pain at rest, stiffness in the morning when getting out bed. Niranjan Lr PTA [address], [place], [address], [facility] 09/19/2024 10:54:53 09/20/2024 text/html Patient reports doing really well with his hip and he wants to wrap up with HEP for his PT.Pains 0/10 at rest. Bjorn Sainz DPT [address], [place], [address], [facility] 09/20/2024 13:00:43 10/12/2024 text/html History of present illness:This patient follows up today and is now 6 weeks out from right anterior total hip arthroplasty. Their pain is well controlled and they are progressing as expected with physical therapy. Able to do current activities without significant difficulty. They have no major complaints at this time and are satisfied with their current state of recovery.Past family, medical, social history and review of systems has been reviewed and updated, and is located in the patient? s chart. Greg Foss MD [address], [place], [address], [facility] 10/12/2024 11:24:17
--- OUTSIDE RECORDS SUMMARY | 2025-03-30 12:02 | XMS_ITS | Clinical Summary ---
Author Organization [facility] [address] [place] [address] [address] [place] [address] Phone Care Team Providers Care Curtain Drier Name Role Phone Veronica Mccann MD Primary Care Provider [phone] Allergies No known active allergies Medications MULTIVITAMIN ORAL Take?by mouth. Active lisinopriL (PRINIVIL,ZEST RIL) 20 mg tablet Take 1 tablet (20 mg total) by mouth at bedtime. 90 tablet 5 Active aspirin 325 mg tablet Take 1 tablet (325 mg total) by mouth 2 (two) times a day. 4 03/28/20 25 Discontinued celecoxib (CeleBREX) 200 mg capsule Take 1 capsule (200 mg total) by mouth 1 (one) time each day. 4 03/28/20 25 Discontinued lisinopriL (PRINIVIL,ZEST RIL) 20 mg tablet Take 1 tablet (20 mg total) by mouth at bedtime. 90 tablet 5 03/07/20 25 Discontinued pantoprazole (PROTONIX) 40 mg EC tablet Take 1 tablet (40 mg total) by mouth 1 (one) time each day. 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 Encounters Date Type Department Care Team Description 03/28/2025 3:00 PM EDT Office Visit Adult Medicine [address] [id number] Veronica Mccann MD Routine general medical examination at a health care facility (Primary Dx); Primary hypertension; Screening for prostate cancer from Last 3 Months Immunizations Name Administration Dates Next Due COVID-19 (Moderna/Spikevax) 12yo and older 03/05/2024,08/15/2023 Influenza Quadravalent, 0.5m l (Fluzone High-dose) 65yo and older 08/15/2023,07/22/2022 Influenza trivalent, 0.5mL ( Fluzone High-dose) 65yo and older 07/30/2024,08/15/2023,08/28/2021,08/21,08/19/2019,09/13/2018,08/17/2016 Influenza trivalent, with pr eservative (Fluzone; Afluria) 6mo and older 10/12/2014,08/16/2013,11/18/2012,10/31 Influenza, Unspecified 07/22/2022 Moderna (age 6mo & older) Bi valent, COVID-19, 0.5 mL or 0.25 mL dosage 03/21/2023,07/22/2022 Moderna Covid-19 Bivalent, O riginal + Ba.1 (Non-US Tradename Spikevax Bivalent) 03/21/2023,07/22/2022 Moderna SARS-CoV-2 COVID-19, mRNA, LNP-S, preservative free 03/20/2022,09/12/2021,02/09/2021,01/12 Pneumococcal conjugate 13 va lent (Prevnar 13, PCV13) 2mo and older 11/04/2014 Pneumococcal polysaccharide 23 valent (Pneumovax 23) 2yo and older 01/05/2015 RSV, bivalent, protein subun it RSVpreF, 0.5mL, Preservative Free (Arexvy) 60yo and older 03/05/2024 Td Tetanus diptheria (Tdvax) 7yo and older 09/17/2023,02/07/2008,04/04/2004 Tdap Tetanus diptheria acell ular pertussis (Boostrix; Adacel) 7yo and older 08/16/2013 Zoster Live 01/26/2014 Zoster recombinant (Shingrix ) 19yo and older 03/21/2023,01/15/2023 Surgical History Surgery Date Site/Laterality Comments CATARACT EXTRACTION : left COLONOSCOPY 05/22/2006 small rectal tubular adenoma COLONOSCOPY 2000 negative COLONOSCOPY 12/03/2011 diverticulosis; no polyps COLONOSCOPY 08/07/2017 Diverticulosis; no polyps. 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 Next colonoscopy indicated 2010. Hypertension 08/19/2019 Rotator cuff tear 11/07/2021 Complete tear, right Degenerative joint disease ( DJD) of hip 03/17/2023 right Family History Medical History Relation Name Comments Colon cancer Aunt 1 maternal Breast cancer Aunt 2 maternal Prostate cancer Father diabetes Diabetes Maternal Grandfather Hypertension Mother colon canc er Stomach cancer Other first cousin, maternal Prostate cancer Paternal Grandfather Hemochromatosis Son 1 Other: benign colon tumor Son 2 Relation Name Status Comments Aunt 1 Aunt 2 Father Maternal Grandfather Mother Other Paternal Grandfather Son 1 Son 2 Social History Tobacco Use Types Packs/Day Years [...] for your loved ones. For example, child care attendant or elderly care for an older adult? [...] on file Sexual Orientation Not on file Obstetrics History Last Filed Vital Signs Vital Sign Reading [...] Mass Index 26.63 03/28/2025 2:47 PM EDT Plan of Treatment Upcoming Encounters Date Type Department Care Team (Late st Contact Info) Description 09/29/2025 8:00 AM EST Office Visit Adult Medicine [facility] [address] [place] [address] [facility] [address] [place] [address] Health Maintenance Due Date Last Done Comments COVID-19 Vaccine (2023- season) 2025 07/30/2024, 03/05/2024, 08/15/2023, Additional history exists Falls Risk Assessment 03/25/2025 03/25/2024 Medicare Annual Wellness Visit 03/25/2025 03/25/2024 Hypertension/CHF/CAD Annual BMP Blood Test 03/29/2025 03/29/2024, 03/29/2024 Social Influencers of Health Screening 09/22/2025 09/22/2024 Depression Screening 03/21/2026 03/21/2025 Cholesterol Screening (Lipid Panel) 05/10/2027 05/10/2022 Colorectal Cancer Screening: Colonoscopy 08/15/2028 08/15/2023 DTaP,Tdap,and Td Vaccines (5 - Td or Tdap) 09/17/2033 09/17/2023, 08/16/2013, 02/07/2008, Additional history exists Hepatitis C Screening Completed 08/07/2013 Pneumococcal Vaccine: 50+ Years Completed 01/05/2015, 11/04/2014 Zoster Vaccines Completed 03/21/2023, 06/2023, 01/26/2014 RSV Immunization Adult Patients Completed 03/05/2024 Influenza Vaccine Completed 07/30/2024, , 08/15/2023, Additional history exists HIB Vaccines Aged Out No longer eligi ble based on patient's age to complete this topic HPV Vaccines Aged Out No longer eligi ble based on patient's age to complete this topic Hepatitis A Vaccines Aged Out No long er eligible based on patient's age to complete this topic Hepatitis B Vaccines Aged Out No long er eligible based on patient's age to complete this topic IPV Vaccines Aged Out No longer eligi ble based on patient's age to complete this topic MMR Vaccines Aged Out No longer eligi ble based on patient's age to complete this topic Meningococcal ACWY Vaccine Aged Out N o longer eligible based on patient's age to complete this topic Meningococcal B Vaccine Aged Out No l onger eligible based on patient's age to complete this topic RSV Immunization Patients Under 20 months Aged Out No longer eligible based on patient's age to complete this topic Varicella Vaccines Aged Out No longer eligible based on patient's age to complete this topic Procedures Procedure Name Priority Date/Time Associated Diagnosis Comments ANNUAL BMP BLOOD TEST Routine 03/29/2024 COLONOSCOPY Routine 08/15/2023 LIPID PANEL Routine 05/10/2022 HEPATITIS C SCREENING Routine 08/07/2013 from Last 3 Months or Most Recently Relevant to Health Maintenance Results * Annual BMP Blood Test (03/29/2024) Annual BMP Blood Test Abstracted Historical Provider HEALTH MAINTENANCE Final Result * Colonoscopy (08/15/2023) Colonoscopy No interpreta tion,abstr acted Anatomical Region Laterality Modality Other Historical Provider HEALTH MAINTENANCE Final Result * (ABNORMAL) Lipid panel (05/10/2022) LDL/HDL Ratio 2 0 - 4 Triglycerides 45 0 - 150 mg/dL Cholesterol 189 0 - 200 mg/dL HDL 79 >=40 mg/dL LDL Cholesterol 101(A) 0 - 100 mg/dL Blood Venous blood specimen / Unknown Historical Provider LAB BLOOD ORDERABLES Miriam l Result * Hepatitis C Screening (08/07/2013) Hepatitis C Screening Abstracted Historical Provider HEALTH MAINTENANCE Final Result from Last 3 Months or Most Recently Relevant to Health Maintenance Insurance MEDICARE [facility] Care Teams Curtain Drier Relationship Specialty Start Date End Date Veronica Mccann MD [address] [place] [address] PCP - General 05/10/1993
== END 2025-03-30 10:36 | disposition home or self-care (01) ==
LOC: HO.HAP 10:35
PROVIDERS: Visit Provider Internal Medicine
DX: Z13.89 Encounter for screening for other disorder (principal)